=== PATIENT | male | born 1950 ===

== ENCOUNTER 2025-03-20 12:05 | Day surgery (SDC) | payer MEDICARE, BC ==
[~2025-03-20] VITALS: Ht 167.6 cm; Wt 74.3 kg
[~2025-03-20 12:05] MED LIST: Lactated Ringer's 1,000 ML IV ONE; propofoL 50 ML IV ONE
[2025-03-20] MEDS ORDERED: GLIP5 (13:43)
[2025-03-20] MEDS ORDERED: JARDIANCE10 MG PO (13:43)
[2025-03-20] MEDS ORDERED: Carvedilol12.5 MG PO (13:44)
[2025-03-20] MEDS ORDERED: Amaryl1 MG PO (13:44)
[2025-03-20] MEDS ORDERED: EZET10 PO (13:44)
[2025-03-20] MEDS ORDERED: CRESTOR (13:45)
[2025-03-20] MEDS ORDERED: XARELTO20 M1 PO (13:46)
[2025-03-20] MEDS ORDERED: LOSA50 PO (13:46)
[2025-03-20] MEDS ORDERED: ATOR40TA PO (13:47)
[2025-03-20] MEDS ORDERED: ZYRTEC10 M2 PO (13:47)
[2025-03-20] MEDS ORDERED: OMEP20ER PO (13:47)
[2025-03-20] MEDS ORDERED: VITAMIN B COMPLEX (13:48)
[2025-03-20] MEDS ORDERED: Vitamin D1000 UNI1 PO (13:48)
[2025-03-20] MEDS ORDERED: MAGNESIUM OXID500 MG PO (13:49)
[2025-03-20] MEDS ORDERED: Ondansetron HCl 2 MG / ML 2ML Vial ONE (14:25)
[2025-03-20] MEDS ORDERED: Lactated Ringer's 1,000 ML IV ONE (14:36)
--- NOTE | 2025-03-20 14:44 | NUR ---
03/20/25 1444 Mary Alice Villarreal PT. C/O NAUSEA, PT. THINKS FROM HIS IV, "I DON'T LIKE NEEDLES & I CAN FEEL IT." ORDER RECEIVED FOR 4MG IV ZOFRAN, 4MG IV ZOFRAN GIVEN PER DR. MENDOZA.
--- NOTE | 2025-03-20 16:51 | NUR ---
03/20/25 1651 ANNA MARTIN PT AND VERY PLEASANT. NO ISSUES WITH SDU/DISCHARGE HOME
== END 2025-03-20 14:20 | disposition home or self-care (01) ==
LOC: ORSCSDS 12:05
PROVIDERS: Internal Medicine Gastroenterology
PROC: 0DBE8ZX Excision of Large Intestine, Via Natural or Artificial Opening Endoscopic, Diagnostic (ICD-10-PCS; principal; 2025-03-20 14:15)
PROC: 0DBP8ZX Excision of Rectum, Via Natural or Artificial Opening Endoscopic, Diagnostic (ICD-10-PCS; principal; 2025-03-20 14:15)
PROC: 0DBM8ZX Excision of Descending Colon, Via Natural or Artificial Opening Endoscopic, Diagnostic (ICD-10-PCS; principal; 2025-03-20 14:15)
DX: R19.7 Diarrhea, unspecified (principal); K52.9 Noninfective gastroenteritis and colitis, unspecified; D12.4 Benign neoplasm of descending colon; D12.8 Benign neoplasm of rectum; Z80.0 Family history of malignant neoplasm of digestive organs; R93.3 Abnormal findings on diagnostic imaging of other parts of digestive tract; K57.30 Diverticulosis of large intestine without perforation or abscess without bleeding; E11.9 Type 2 diabetes mellitus without complications; I25.2 Old myocardial infarction; Z86.73 Personal history of transient ischemic attack (TIA), and cerebral infarction without residual deficits; K76.0 Fatty (change of) liver, not elsewhere classified; Z79.01 Long term (current) use of anticoagulants
CPT/HCPCS: 82947; 88305; J2405; J2704; J7120